=== PATIENT | female | born 1990 | race Two or more races ===

== ENCOUNTER 2016-09-29 22:26 | Emergency (ER) | payer SELFPAY ==
--- NOTE | ~2016-09-29 | CR126 ---
[facility] A Service of [facility] & [facility] RADIOLOGY TEXT RESULTS PATIENT: ELVI SERRATO LOCATION: [facility] : [birth year] UNIT #: [id number] AGE: [address]: Ian Handy SEX: F ORDER DR: [id number] [facility] [address] [place], [place] [address] [id number] MR#: [id number] Acc #: [id number] NAME: ELVI SERRATO : 1990 SEX: F STUDY DATE/TIME: 09/29/2016 23:52 UNIT: [facility] ROOM: STUDY DESCRIPTION: CR Foot Complete Min 3 View Lt Attending Physician: Ian Handy P.A.-C. Ordering Physician: Ed Doctor [id number] [facility] Primary Care Physician: Primary Care Physician No MEDICAL IMAGING REPORT This report is preliminary unless electronic signature is present EXAM Left foot, 09/29 at 23:52 INDICATION Foot pain after dropping object on the fourth toe today. FINDINGS Three views of the left foot were obtained. There is a comminuted fracture of the second distal phalanx. There is also a fracture of the second middle phalanx. These fractures are essentially nondisplaced. The remainder of the foot is normal. IMPRESSION Nondisplaced fractures of the second, middle and distal phalanges. The rest of the foot is normal. Dictated by... Aba Gallego Jr., M.D. THIS IS AN ELECTRONICALLY VERIFIED REPORT Aba Gallego Jr., M.D. at 09/30/2016 9:21 PM CELINA/neelam TD: 09/30/2016 13:33 JOB #: [id number] MEDICAL IMAGING REPORT Page 1 of 1 COPY
== END 2016-09-30 01:00 | disposition home or self-care (01) ==
LOC: CFTX 22:26 → CED 22:26 → CFTX 23:59
DX: S92.535A Nondisplaced fracture of distal phalanx of left lesser toe(s), initial encounter for closed fracture (principal); X58.XXXA Exposure to other specified factors, initial encounter; Y92.009 Unspecified place in unspecified non-institutional (private) residence as the place of occurrence of the external cause
CPT/HCPCS: 29405; 73630; 99283